=== PATIENT | female | born 1960 | race Native Hawaiian/Other Pacific Islander ===

== ENCOUNTER 2016-08-25 05:52 | Emergency (ER) | payer MEDICARE, MEDICAID ==
[~2016-08-25] VITALS: Ht 160 cm; Wt 70.5 kg
[~2016-08-25 05:52] MED LIST: ACET-784 PO
[2016-08-25 06:00] VITALS: BP 156/98
== END 2016-08-25 06:52 | disposition home or self-care (01) ==
LOC: EMS 05:54
DX: B35.6 Tinea cruris (principal)
CPT/HCPCS: 99283

== ENCOUNTER 2017-12-19 11:19 | Emergency (ER) | payer MEDICAID, MEDICARE ==
[~2017-12-19] VITALS: Ht 160 cm; Wt 80.0 kg
[2017-12-19] MEDS ORDERED: DiphenhydrAMINE/ZINC ACET 30 GM CREAM TP ONE (12:30)
[2017-12-19] MEDS ORDERED: DiphenhydrAMINE HCL 25 MG CAPSULE PO ONE (12:30)
[2017-12-19] MEDS ORDERED: TRIAMCINOLONE ACETONIDE 40 MG/ML VIAL IM ONE (12:30)
[2017-12-19 14:17] VITALS: BP 132/80
== END 2017-12-19 14:17 | disposition home or self-care (01) ==
LOC: EMS 11:20
DX: T49.8X5A Adverse effect of other topical agents, initial encounter (principal); Y92.89 Other specified places as the place of occurrence of the external cause
CPT/HCPCS: 96372; 99285; J3301

== ENCOUNTER 2018-09-27 20:16 | Emergency (ER) | payer SELFPAY ==
[~2018-09-27] VITALS: Ht 162.6 cm; Wt 75.0 kg
[2018-09-27] MEDS ORDERED: DIPH50 PO (20:33)
[2018-09-27 21:54] VITALS: BP 145/90
[2018-09-27] MEDS ORDERED: DEXAMETHASONE SOD PHOS 4 MG/ML 5 ML VIAL IM ONE (22:15)
[2018-09-27] MEDS ORDERED: FAMOTIDINE 20 MG TABLET PO ONE (22:15)
[2018-09-27] MEDS ORDERED: DiphenhydrAMINE HCL 25 MG CAPSULE PO ONE (22:15)
== END 2018-09-27 22:35 | disposition home or self-care (01) ==
LOC: EMS 20:16
DX: T78.1XXA Other adverse food reactions, not elsewhere classified, initial encounter (principal); J40 Bronchitis, not specified as acute or chronic; X58.XXXA Exposure to other specified factors, initial encounter
CPT/HCPCS: 96372; 99283; J1100

== ENCOUNTER 2020-01-04 13:51 | Emergency (ER) | payer MEDICARE ==
[~2020-01-04] VITALS: Ht 160 cm; Wt 73.6 kg
[~2020-01-04 13:51] MED LIST changes: -ACET-784 PO; +DIPH50 PO
[2020-01-04 14:04] VITALS: BP 105/80
[2020-01-04] MEDS ORDERED: DiphenhydrAMINE HCL 25 MG CAPSULE PO ONE (14:45)
[2020-01-04] MEDS ORDERED: FAMOTIDINE 20 MG TABLET PO ONE (14:45)
[2020-01-04] MEDS ORDERED: DEXAMETHASONE SOD PHOS 4 MG/ML 5 ML VIAL IM ONE (14:45)
== END 2020-01-04 15:16 | disposition home or self-care (01) ==
LOC: EMS 13:59
DX: T78.40XA Allergy, unspecified, initial encounter (principal); X58.XXXA Exposure to other specified factors, initial encounter
CPT/HCPCS: 96372; 99283; J1100